=== PATIENT | female | born 1955 ===

== ENCOUNTER 2018-02-27 12:28 | Emergency (ER) | payer OTHER ==
[~2018-02-27] VITALS: Ht 165.1 cm; Wt 72.7 kg
[~2018-02-27 12:28] MED LIST: CEPHALEXIN500 M1 PO; MACROBID 1100 MG/CAP PO; NO HOME MEDICATIONS; NORCO 325 MG-51 TAB PO; PERCOCET 325 MG1 TA2 PO
[2018-02-27 12:43] VITALS: TEMP 96.8
[2018-02-27 13:20] LABS: COLLECTION METHOD CLEAN CATCH
[2018-02-27 13:26] LABS: MUCOUS Present /lpf; PH 7 (5-8); URINE APPEARANCE Hazy; URINE BACTERIA Rare /hpf; URINE BILIRUBIN Negative (NEGATIVE); URINE BLOOD Negative (NEGATIVE); URINE COLOR Yellow; URINE GLUCOSE Negative (NEGATIVE); URINE KETONE Negative (NEGATIVE); URINE LEUKOCYTE ESTERASE Negative (NEGATIVE); URINE NITRATE Negative (NEGATIVE); URINE PROTEIN(semi-quant) Negative (NEGATIVE); URINE RBC 0-2 /hpf; URINE UROBILINOGEN Negative (NEGATIVE)
[2018-02-27 13:53] LABS: BASO % 0.7 % (0.0-2.0); EOS # 0.1 (0.0-0.7); EOS % 0.9 % (0-4.0); GRAN # 3.4 (1.4-6.5); HEMATOCRIT 41.2 % (37.0-47.0); HEMOGLOBIN 14.2 g/dl (12.5-16.0); LYMPH # 1.4 (1.2-3.4); LYMPH % 26.7 % (20.0-51.0); MEAN CELL VOLUME 88 fl (80.0-100.0); MEAN CORPUSCULAR HEMOGLOBIN 30 pg (27.0-31.0); MEAN CORPUSCULAR HGB CONC 35 g/dl (33.0-37.0); MEAN PLATELET VOLUME 9.8 fl (7.4-10.4); MONO # 0.4 (0.1-0.6); MONO % 7.3 % (1.7-9.3); PLATELET COUNT 227 K/mm3 (130-400); RED BLOOD COUNT 4.67 M/mm3 (4.10-5.30); REDCELL DISTRIBUTION WIDTH-CV 12.6 % (11.5-14.5)
[2018-02-27 14:06] LABS: ALBUMIN 3.9 gm/dL (3.5-5.0); BILIRUBIN,TOTAL 0.5 mg/dL (0.0-1.0); C-REACTIVE PROTEIN 0.6 mg/dL (0.0-0.9); CALCIUM 9.4 mg/dL (8.4-10.2); CREATININE, serum 0.58 mg/dL (0.52-1.25); POTASSIUM 4.4 mmol/L (3.4-5.0)
[2018-02-27 15:02] VITALS: BP 127/78
[2018-02-27] MEDS ORDERED: NORCO 325 MG-51 TAB PO (15:39)
[2018-02-27 16:10] VITALS: PULSE 64
== END 2018-02-27 16:10 | disposition home or self-care (01) ==
LOC: COL.ER 12:28
PROVIDERS: Emergency Medicine
DX: R10.11 Right upper quadrant pain (principal); Z98.51 Tubal ligation status
CPT/HCPCS: J1170; J2405; J7030; Q9967

== ENCOUNTER 2019-10-13 20:13 | Emergency (ER) | payer OTHER, MEDICARE ==
[~2019-10-13] VITALS: Ht 165.1 cm; Wt 77.3 kg
[2019-10-13 20:18] VITALS: TEMP 98.3
[2019-10-13] MEDS ORDERED: TRIAMCINOLONE A15 G1 TP (20:43)
[2019-10-13] MEDS ORDERED: PREDNISONE20 MG PO (20:43)
[2019-10-13 20:46] VITALS: BP 166/83; PULSE 73
== END 2019-10-13 20:51 | disposition home or self-care (01) ==
LOC: COL.ER 20:13
DX: L23.7 Allergic contact dermatitis due to plants, except food (principal); R03.0 Elevated blood-pressure reading, without diagnosis of hypertension
CPT/HCPCS: J7512

== ENCOUNTER → 2020-02-10 | Outpatient (CLI) | payer OTHER, MEDICARE ==
[~2020-02-10] MED LIST changes: +PREDNISONE20 MG PO; +TRIAMCINOLONE A15 G1 TP
== END ==
LOC: MC.RAD 09:30
DX: Z12.31 Encounter for screening mammogram for malignant neoplasm of breast (principal)